=== PATIENT | female | born 1945 | race Caucasian/White ===

== ENCOUNTER 2021-09-15 10:07 | Outpatient (REF) | payer MEDICARE, OTHER, SELFPAY ==
[2021-09-15 12:44] LABS: Anion Gap 19 (12-20); Blood Urea Nitrogen 28 mg/dL (9-16); Calcium 10.2 mg/dL (8.4-10.2); Carbon Dioxide 22 mmol/L (22-29); Chloride 101 mmol/L (96-108); Estimated Glomerular Filt Rate 45; Glucose Random 143 mg/dL (60-115); Potassium 4.2 mmol/L (3.3-5.1); Sodium 138 mmol/L (135-145)
== END 2021-09-15 10:08 | disposition home or self-care (01) ==
LOC: HO.LAB 10:07
PROVIDERS: PCP Nurse Practitioner Primary Care; Visit Provider Surgery
DX: R22.0 Localized swelling, mass and lump, head (principal)
CPT/HCPCS: 36415; 80048; 99202

== ENCOUNTER 2021-09-20 08:04 | Outpatient (REF) | payer MEDICARE, OTHER, SELFPAY ==
--- NOTE | ~2021-09-20 | CT_ITS ---
EXAMINATION: CT HEAD WITH/WITHOUT CONTRAST CLINICAL INFORMATION: Localized swelling. COMPARISON: None TECHNIQUE: Contiguous axial imaging was performed from the skull base to vertex before and after the administration of 100 mL of Omnipaque [address] examination was performed using dose optimization techniques as appropriate, variously including the following: *Automated exposure control *Adjustment of mA and/or kV according to patient size (this includes techniques or standardized protocols for targeted exams where dose is matched to indication/reason for exam; i.e. extremities or head) *Use of iterative reconstruction technique DLP: 1628 mGy-cm FINDINGS: There is no evidence of acute intracranial hemorrhage or territorial infarction. No abnormal mass effect or midline shift is seen. Prasad to white matter differentiation is well preserved. No extra-axial fluid collections are identified. There is no abnormal enhancement. The lateral ventricles are symmetrical but enlarged. There is diffuse periventricular hypodensity in both cerebral hemispheres without mass effect or edema. The mastoid air cells and visualized portions of the paranasal sinuses are well aerated. There are 3 scalp lesions. A 1.5 cm lesion right posterior parietal region measuring 34 Hounsfield units on postcontrast and 33 Hounsfield units on precontrast on coronal image 70/10 and 71/5 respectively. There is a second lesion in the left parasagittal scalp parietal region measuring 1.5 cm with a precontrast density measuring 40 Hounsfield units and a postcontrast density measuring 51 Hounsfield units. There is a third lesion right parasagittal frontal scalp with hypodense areas within. Precontrast lesion measures 119 Hounsfield units and postcontrast it measures [address]/CT head/brain wo/w con IMPRESSION: No acute intracranial process seen. Differential diagnosis for 2 small scalp lesions could represent sebaceous cyst neurofibromas or pilomatricomas. 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 If patient is symptomatic with the larger lesion, a biopsy or follow up with an MRI can be performed.
[2021-09-20] MEDS: iohexoL 350 MG/ML 100 ML INFUS..BTL 85 ML IV (08:47)
== END 2021-09-20 08:05 | disposition home or self-care (01) ==
LOC: HO.CT 08:04
PROVIDERS: PCP Nurse Practitioner Primary Care; Visit Provider Nurse Practitioner Primary Care
DX: R22.0 Localized swelling, mass and lump, head (principal)
CPT/HCPCS: 70470; Q9967

== ENCOUNTER → 2021-09-27 10:37 | Outpatient (BNVA) | payer MEDICARE, OTHER, SELFPAY | PROVIDERS: PCP Nurse Practitioner Primary Care; Visit Provider Surgery | DX: R22.0 Localized swelling, mass and lump, head (principal) | CPT/HCPCS: 99212 ==

== ENCOUNTER 2021-10-19 07:52 | Day surgery (SDC) | payer MEDICARE, OTHER, SELFPAY ==
[2021-10-13 11:19] VITALS: BMI 27.9
--- NOTE | 2021-10-18 10:31 | HO.ANESPROP2 ---
Documented by User: Jeri Kaur NP 10/18/21 10:31 HPI - Anesthesia Eval Consult details Narrative: 76yo F for Excision Mass and Sebaceous Cyst of scalp PMFSH Active Problems Active Problems: All Active Problems (Updated 10/13/21 @ 11:18 by Caro Tillman RN) Scalp mass (Acute) Past Medical History Medical History Diabetes Elevated cholesterol GERD (gastroesophageal reflux disease) HTN (hypertension) Surgical History Surgical History (Updated 10/13/21 @ 11:18 by Caro Tillman RN) Surgical history unknown Social History Social History Patient Tobacco Use Status: Never used Tobacco Advance Directives: No Advance Directives Information Provided: Yes Nutrition Risks: No Nutritional Risk Patient : No Meds Allergies Allergy/AdvReac Type Severity Reaction Status Date / Time No Known Allergies Allergy Verified 10/19/21 10:31 Home Medications Medication Instructions Recorded Confirmed Last Taken Type atorvastatin 40 mg tablet 40 mg PO DAILY 09/15/21 09/15/21 Unknown History doxycycline hyclate 100 mg tablet 100 mg PO BID 09/15/21 09/15/21 Unknown History gemfibrozil 600 mg tablet 600 mg PO BID 09/15/21 09/15/21 Unknown History hydrochlorothiazide 25 mg tablet 25 mg PO DAILY 09/15/21 09/15/21 Unknown History losartan 50 mg tablet 50 mg PO DAILY 09/15/21 09/15/21 Unknown History metformin 1,000 mg tablet 1,000 mg PO BID 09/15/21 09/15/21 Unknown History metoprolol tartrate 50 mg tablet 50 mg PO BID 09/15/21 09/15/21 Unknown History pantoprazole 40 mg tablet,delayed 40 mg PO DAILY 09/15/21 09/15/21 Unknown History release aspirin 81 mg tablet 81 mg PO DAILY 10/18/21 10/18/21 Unknown History Exam Exam Date and Time: October 18, 2021 1031 Height,Weight and Vital Signs: Height 5 ft 6 in Weight 78.471 kg Pertinent Lab Results Pertinent Lab Results: Laboratory Tests 09/15/21 11:42 Sodium 138 Potassium 4.2 Chloride 101 Carbon Dioxide 22 BUN 28 H Creatinine 1.16 Assessment and Plan Assessment Anesthesia Assessment: Chart Reviewed Documented by User: Violeta Boyd MD 10/19/21 10:41 [facility] Past Medical History Medical History Diabetes Elevated cholesterol GERD (gastroesophageal reflux disease) HTN (hypertension) Functional capacity: independent ambulation Patient : No Family History Family history of problems with anesthesia: No Surgical History Surgical History (Updated 10/13/21 @ 11:18 by Caro Tillman RN) Surgical history unknown Social History Social History Patient Tobacco Use Status: Never used Tobacco Advance Directives: No Advance Directives Information Provided: Yes Nutrition Risks: No Nutritional Risk Patient : No Meds Allergies Allergy/AdvReac Type Severity Reaction Status Date / Time No Known Allergies Allergy Verified 10/19/21 10:31 Home Medications Medication Instructions Recorded Confirmed Last Taken Type atorvastatin 40 mg tablet 40 mg PO DAILY 09/15/21 09/15/21 Unknown History doxycycline hyclate 100 mg tablet 100 mg PO BID 09/15/21 09/15/21 Unknown History gemfibrozil 600 mg tablet 600 mg PO BID 09/15/21 09/15/21 Unknown History hydrochlorothiazide 25 mg tablet 25 mg PO DAILY 09/15/21 09/15/21 Unknown History losartan 50 mg tablet 50 mg PO DAILY 09/15/21 09/15/21 Unknown History metformin 1,000 mg tablet 1,000 mg PO BID 09/15/21 09/15/21 Unknown History metoprolol tartrate 50 mg tablet 50 mg PO BID 09/15/21 09/15/21 Unknown History pantoprazole 40 mg tablet,delayed 40 mg PO DAILY 09/15/21 09/15/21 Unknown History release aspirin 81 mg tablet 81 mg PO DAILY 10/18/21 10/18/21 Unknown History Exam Airway Mallampati Class: II TM Dist: >3cm Neck ROM: Full Heart: RRR Lungs: CTA Assessment and Plan Final Anesthetic Review Family History of Problems with Anesthesia: No ASA Class: II Final Preanesthetic Review: No Changes in Pt Med Stat, Meds/Allgs Chart Reviewed, Consent Obtained/Reviewed and Anes Risks/Benef Reviewed Patient Risk: Low Procedure Risk: Low Anesthetic Plan Anesthetic Plan: GA Disposition: Standard PACU
[2021-10-19] VITALS (7 sets, daily range): BP systolic 141–162; BP diastolic 61–85; PULSE 83–95; RESP 16–18; TEMP 36.1–36.7; O2SAT 89–98
[2021-10-19 08:44] LABS: Glucose, Whole Blood 127 mg/dL (60-115)
[2021-10-19] MEDS: Lactated Ringers 1,000 ML 100 ML IVCONT (08:45)
--- NOTE | 2021-10-19 09:48 | MHC.SHP ---
Pre-Procedural Eval Section A Date of Service: 10/19/21 The patient is an INPATIENT: No The History & Physical has been completed within 30 days and I have reviewed it.: Yes Section B Chief Complaint: Localized swelling, mass and lump, head Allergies: Allergies Allergy/AdvReac Type Severity Reaction Status Date / Time No Known Allergies Allergy Verified 09/27/21 10:50 Plan I have reviewed the history and physical and performed a pertinent physical examination on my patient. No changes have occurred unless specified.
--- NOTE | 2021-10-19 09:49 | P.OP_ITS ---
Operative Note Operative Note Date of Service: 10/19/21 Narrative: Preop diagnosis: [Multiple scalp cysts] Postop diagnosis: [Same] Procedure: [Excision of 4.5 x 5.0 cm cystic scalp mass & 5 cmm local advancement flap closure; excision scalp sebaceous cysts x 2 with primary closure] Surgeon: Adam Mcguire MD Assist: [None] Anesthesia: [GET and local, Lidocaine 2% with epi & Ropivicaine 0.5% 50:50 mix] Estimated blood loss: [5cc] Specimen: [1) scalp mass, 2) sebaceous cysts x 2 ( 1.8x2.1cm & 2.2x2.4cm] 3) intra-op culture Gram stain & culture Intraoperative findings: [4.5 x 5.0cm cystic mass with ? 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 There have been no prior attempts at resection, however she has had multiple superficial infections secondary to sebaceous cysts on the mass. Preoperative CT confirm no communication with the skull. She also has 2 other smaller sebaceous cysts that are causing grooming issues and she wanted to have these removed. The inherent risks of bleeding, infection, recurrence or need for another procedure in the event of a complication was discussed with the patient and apparently understood. She seemed understand and wanted to proceed. The option of a 2nd opinion was offered and declined.] Procedure: [The patient was identified in preoperative holding by myself and again in the operating suite. Sequential compression stockings were in place, an appropriate time-out performed and she received Ancef IV. Her scalp was carefully prepped with Betadine and draped in the usual manner for surgery. Both the scalp was being prepped with Betadine, purulence material was present at the largest 4.5 by 2.5 cm mass. This was excluded to minimize infection risks. Under loupe magnification, dissection was addressed to the sebaceous cysts in the right occipitoparietal area and occipital area. Linear incisions were made sharply and carried into the subcutaneous tissues. Hemostasis was obtained with electrocautery. The cysts and there respective capsules were circumferentially dissected and sent for permanent section. Hemostasis was obtained with electrocautery. Next, intraoperative cultures and Gram stain were obtained and sent. Next, an elliptical incision measuring 6 x 5cm encompassing the large scalp mass was dietrich ied into the loose arealor tissue. In order to affect primary closure, local advancement flaps had to be raised the length of the incision and dissection was carried in the loose areolar plane until the scalp skin could be closed primarily. Hemostasis was obtained with cautery. Interrupted 3-0 Polysorb sutures were used to approximate the deep dermis tissues and a 3-0 polypropylene suture used to close the skin. The area was then washed and dried, bacitracin and a scalp stockingette applied. The patient tolerated the procedure well was sent extubated to recovery in stable condition. All sponge initial counts were correct. At the patient's request, I called her at [phone] and apprised him of the operation and restrictions. His questions seemed to be satisfactorily answered.]
== END 2021-10-19 12:56 | disposition home or self-care (01) ==
LOC: HO.SSS 07:52
PROVIDERS: PCP Nurse Practitioner Primary Care; Visit Provider Surgery
PROC: (CPT 14021; principal; 2021-10-19 09:40)
DX: L72.11 Pilar cyst (principal); L72.3 Sebaceous cyst; E78.00 Pure hypercholesterolemia, unspecified; I10 Essential (primary) hypertension; E11.9 Type 2 diabetes mellitus without complications; K21.9 Gastro-esophageal reflux disease without esophagitis; Z79.82 Long term (current) use of aspirin; Z79.84 Long term (current) use of oral hypoglycemic drugs; Z79.899 Other long term (current) drug therapy
CPT/HCPCS: 14021; 11423; 11422; 82947; 87071; 87077; 87186; 87205; 88304; J0690; J2250; J2795; J3010

== ENCOUNTER → 2021-10-27 08:31 | Outpatient (BNVA) | payer MEDICARE, MEDICAID, SELFPAY | PROVIDERS: PCP Nurse Practitioner Primary Care; Visit Provider Surgery | DX: Z09 Encounter for follow-up examination after completed treatment for conditions other than malignant neoplasm (principal) | CPT/HCPCS: 99212 ==

== ENCOUNTER 2022-12-19 11:47 | Outpatient (REF) | payer OTHER, SELFPAY ==
--- NOTE | ~2022-12-19 | MM_ITS ---
EXAMINATION: MM SCREENING DIGITAL BREAST TOMOSYNTHESIS, BILATERAL CLINICAL INFORMATION: Screening. Asymptomatic. COMPARISON: Mammography: This study is compared with prior exams dating back to 2015. TECHNIQUE: Digital breast tomosynthesis is performed in both the craniocaudal and mediolateral oblique views along with computer-aided detection (CAD). Synthesized 2D images are generated from the tomosynthesis. FINDINGS: The breasts are almost entirely fatty (ACR BI-RADS breast composition Category a). There are no significant masses, abnormal calcifications, or other abnormalities. MM/MM tomosynthesis screening BI IMPRESSION: No mammographic evidence of malignancy. ASSESSMENT: BI-RADS BI-RADS 1 - Negative RECOMMENDATION: Routine annual mammography screening. 1 year F/U This examination should not preclude the clinical evaluation of a suspicious palpable abnormality. This patient's information was entered into a reminder system with a target due date for their next mammogram.
== END 2022-12-19 11:48 | disposition home or self-care (01) ==
LOC: HO.MAMMO 11:47
PROVIDERS: Visit Provider Nurse Practitioner Primary Care
DX: Z12.31 Encounter for screening mammogram for malignant neoplasm of breast (principal)
CPT/HCPCS: 77063; 77067

== ENCOUNTER → 2022-12-19 12:30 | Outpatient (BNV) | payer MEDICARE, SELFPAY | PROVIDERS: Visit Provider Radiology Diagnostic Radiology | DX: Z12.31 Encounter for screening mammogram for malignant neoplasm of breast (principal) | CPT/HCPCS: 77063; 77067 ==

== ENCOUNTER 2023-02-08 09:30 | Outpatient (REF) | payer OTHER, SELFPAY ==
--- NOTE | ~2023-02-08 | US_ITS ---
EXAMINATION: US ABDOMEN COMPLETE CLINICAL INFORMATION: Left upper quadrant swelling and pain. COMPARISON: None available. TECHNIQUE: Real-time imaging of the abdominal viscera. FINDINGS: The region of the pancreas is not adequately defined. There is no free fluid in the area. The proximal aorta and vena cava are within normal limits. Liver is overall increased in echogenicity. This could be consistent with fatty change. Hepatitis cannot be excluded. The pick up driver comments on dilated ducts. The gallbladder demonstrates multiple gallstones. Difficult to assess the gallbladder wall. Lead Esthetician measures the wall at 5 mm. Edema/thickening cannot be excluded. Common duct is 7 mm. The right kidney is 10.9 cm. Incompletely visualized. No hydronephrosis. Superior pole is not adequately seen. Left kidney is 10.7 cm. Again incompletely not adequately visualized. There is, however, no hydronephrosis. Spleen is 10 cm within normal limits. US/US abdomen complete IMPRESSION: This exam is limited. There is cholelithiasis here and possible gallbladder wall thickening. This may be chronic but edema cannot be excluded. Common duct is 7 mm mildly prominent and the pick up driver raises the question of some intrahepatic ductal dilatation. The liver is overall increased echogenicity which may be consistent with fatty change. Other findings are as described above Correlation recommended clinically. If further evaluation is warranted consider HIDA scan.
== END 2023-02-08 09:31 | disposition home or self-care (01) ==
LOC: HO.HMGCX 09:30
PROVIDERS: PCP Nurse Practitioner Primary Care; Visit Provider Nurse Practitioner Primary Care
DX: R10.12 Left upper quadrant pain (principal); R19.02 Left upper quadrant abdominal swelling, mass and lump
CPT/HCPCS: 76700

== ENCOUNTER 2024-01-17 11:47 | Outpatient (REF) | payer OTHER, SELFPAY ==
--- NOTE | ~2024-01-17 | MM_ITS ---
EXAMINATION: MM SCREENING DIGITAL BREAST TOMOSYNTHESIS, BILATERAL CLINICAL INFORMATION: Screening. Asymptomatic. COMPARISON: Mammography: Comparison is made with available priors TECHNIQUE: Digital breast mammography with tomosynthesis is performed in both the craniocaudal and mediolateral oblique views along with computer-aided detection (CAD). FINDINGS: There are scattered areas of fibroglandular density (ACR BI-RADS breast composition Category b). There are no significant masses, abnormal calcifications, or other abnormalities. MM/MM tomosynthesis screening BI IMPRESSION: No mammographic evidence of malignancy. ASSESSMENT: BI-RADS BI-RADS 1 - Negative RECOMMENDATION: Routine annual mammography screening. 1 year F/U This examination should not preclude the clinical evaluation of a suspicious palpable abnormality. This patient's information was entered into a reminder system with a target due date for their next mammogram. Electronically signed by: Gina Walter DO 01/23/2024 01:25 PM [facility]
== END 2024-01-17 11:48 | disposition home or self-care (01) ==
LOC: HO.MAMMO 11:47
PROVIDERS: PCP Nurse Practitioner Primary Care; Visit Provider Nurse Practitioner Primary Care
DX: Z12.31 Encounter for screening mammogram for malignant neoplasm of breast (principal)
CPT/HCPCS: 77063; 77067

== ENCOUNTER → 2024-01-17 12:15 | Outpatient (BNV) | payer OTHER, SELFPAY | PROVIDERS: PCP Nurse Practitioner Primary Care; Visit Provider Internal Medicine | DX: Z12.31 Encounter for screening mammogram for malignant neoplasm of breast (principal) | CPT/HCPCS: 77063; 77067 ==

== ENCOUNTER 2024-01-21 10:08 | Outpatient (REF) | payer OTHER, SELFPAY ==
[2024-01-21 11:36] LABS: MANUAL DIFF FLAG NO
[2024-01-21 11:38] LABS: Basophils Percent Auto 0.3 % (0-2); Eosinophils Absolute Auto 0.2 X10*3/uL (0.0-0.4); Eosinophils Percent Auto 2.2 % (0-4); Hematocrit 37.7 % (37.0-47.0); Hemoglobin 12.5 g/dl (12.0-16.0); Imm Gran Abs Auto 0.03 X10*3/uL (0.00-0.03); Imm Gran Pct Auto 0.4 % (0.0-0.4); Lymphocytes Absolute Auto 1.7 X10*3/uL (1.2-4.9); Lymphocytes Percent Auto 23.2 % (20-40); Mean Corpuscular HGB Conc 33.2 g/dl (31.0-35.0); Mean Corpuscular Hemoglobin 32.1 pg (27.0-33.0); Mean Corpuscular Volume 96.7 fL (80.0-98.0); Mean Platelet Volume 9.8 fL (9.4-12.3); Monocytes Absolute Auto 0.8 X10*3/uL (0.1-1.2); Monocytes Percent Auto 10.4 % (2-11); Neutrophils Absolute Auto 4.7 x10*3/uL (2.0-8.3); Neutrophils Percent Auto 63.5 % (45-73); Platelet Count 318 X10*3/uL (160-400); Red Cell Distribution Width 13.2 % (11.0-16.0); White Blood Count 7.3 X10*3/uL (4.8-10.8)
[2024-01-21 12:15] LABS: Alanine Aminotransferase 26 U/L (0-31); Alkaline Phosphatase 49 U/L (39-117); Anion Gap 14 (12-20); Aspartate Amino Transferase 32 U/L (5-31); Bilirubin Total 0.4 mg/dL (0.0-1.0); Blood Urea Nitrogen 18 mg/dL (9-16); Calcium 9.1 mg/dL (8.4-10.2); Carbon Dioxide 28 mmol/L (22-29); Chloride 101 mmol/L (96-108); Cholesterol 140 mg/dL (<200); Estimated Glomerular Filt Rate 47; Glucose Random 128 mg/dL (60-115); HDL Cholesterol 40 mg/dL (>40); LDL Cholesterol Calculated 60 mg/dL (<100); Potassium 3.8 mmol/L (3.3-5.1); Sodium 139 mmol/L (135-145); Total Protein 7.7 g/dL (6.5-8.0); Triglycerides 202 mg/dL (<150)
[2024-01-21 12:41] LABS: Vitamin B12 276 pg/mL (200-900)
== END 2024-01-21 10:09 | disposition home or self-care (01) ==
LOC: HO.HHCL 10:08
PROVIDERS: Visit Provider Nurse Practitioner Primary Care
DX: R10.12 Left upper quadrant pain (principal); E11.69 Type 2 diabetes mellitus with other specified complication; E78.5 Hyperlipidemia, unspecified
CPT/HCPCS: 36415; 80053; 80061; 82607; 85025

== ENCOUNTER 2025-01-22 11:09 | Outpatient (REF) | payer MEDICARE, SELFPAY ==
--- NOTE | ~2025-01-22 | MM_ITS ---
EXAMINATION: MM SCREENING DIGITAL BREAST TOMOSYNTHESIS, BILATERAL CLINICAL INFORMATION: Screening. Asymptomatic. COMPARISON: Mammography: Comparison is made with available priors TECHNIQUE: Digital breast mammography with tomosynthesis is performed in both the craniocaudal and mediolateral oblique views along with computer-aided detection (CAD). FINDINGS: There are scattered areas of fibroglandular density. Right: Asymmetry retroareolar region slightly inferior breast anterior depth on MLO view. No suspicious calcifications or other abnormal findings. Left: There are no significant masses, abnormal calcifications, or other abnormalities. MM/MM tomosynthesis screening BI IMPRESSION: Additional imaging is recommended ASSESSMENT: BI-RADS Category 0: Incomplete - Need additional Imaging Evaluation RECOMMENDATION: 1. Additional views of the right breast. 2. Targeted ultrasound if warranted after review of the additional views. 3. Radiology department staff will contact the patient for additional imaging. Additional Imaging required This examination should not preclude the clinical evaluation of a suspicious palpable abnormality. This patient's information was entered into a reminder system with a target due date for their next mammogram. Electronically signed by: Gina Walter DO 01/26/2025 03:27 PM [facility]
== END 2025-01-22 11:10 | disposition home or self-care (01) ==
LOC: HO.MAMMO 11:09
PROVIDERS: PCP Nurse Practitioner Primary Care; Visit Provider Nurse Practitioner Primary Care
DX: Z12.31 Encounter for screening mammogram for malignant neoplasm of breast (principal)
CPT/HCPCS: 77063; 77067

== ENCOUNTER → 2025-01-22 11:30 | Outpatient (BNV) | payer MEDICARE, SELFPAY | PROVIDERS: PCP Nurse Practitioner Primary Care; Visit Provider Internal Medicine | DX: Z12.31 Encounter for screening mammogram for malignant neoplasm of breast (principal) | CPT/HCPCS: 77063; 77067 ==

== ENCOUNTER 2025-01-28 09:44 | Outpatient (REF) | payer MEDICARE, SELFPAY ==
--- OUTSIDE RECORDS SUMMARY | 2025-01-28 11:33 | XMS_ITS | Clinical Summary ---
Author Organization [employer] Address [address] [facility] 7t [place] [address] Care Team Providers Care Assembly Room Supervisor Name Role Phone Shaista Slade Primary Care Provider [phone] Allergies Active Allergy Reactions Criticality Noted Date Comments Nenafap-Jbbhcl-Nyima Pertussis Palpitations,Dizziness,Fev er Low 04/06/2014 Medications Melatonin 3 MG capsuleIndication s:Difficulty sleeping 1 capsule at night as needed for insomnia 90 capsule 07/21/19 23 Active guaiFENesin (Mucinex) 600 MG 12 hr tabletIndications :Acute cough 1 tab twice daily as needed for mucus. Do not crush, chew, or split. 60 tablet 01/30/20 24 Active metFORMIN (Glucophage) 1000 MG tablet TAKE 1 TABLET BY MOUTH TWICE DAILY IN THE MORNING AND IN THE EVENING WITH MEALS 180 tablet 3 02/07/20 24 Active acetaminophen (Tylenol) 500 MG tabletIndications :Chronic periodontitis Take 1 tablet (500 mg) by mouth every 6 (six) hours if needed for mild pain for up to 20 doses. 20 tablet 04/01/19 25 Active hydroCHLOROthiazi de (HYDRODiuril) 25 MG tabletIndications :Benign essential HTN TAKE 1 TABLET BY MOUTH EVERY DAY 90 tablet 3 04/28/19 25 Active metoprolol succinate XL (Toprol XL) 50 MG 24 hr tabletIndications :Hypertension associated with diabetes (HCC) Take 1 tablet (50 mg) by mouth Once per day. Do not crush or chew. 90 tablet 3 05/29/19 25 026 Active omega-3 acid ethyl esters (Lovaza) 1 g capsuleIndication s:Hypertriglyceri demia Take 1 capsule (1 g) by mouth 2 times daily. 180 capsule 3 05/30/19 25 026 Active atorvastatin (Lipitor) 40 MG tablet TAKE 1 TABLET BY MOUTH EVERY DAY AT BEDTIME 90 tablet 3 08/19/19 25 Active losartan (Cozaar) 50 MG tablet TAKE 1 TABLET BY MOUTH EVERY DAY 90 tablet 2 09/25/19 25 Active pantoprazole (ProtoNix) 40 MG EC tabletIndications :Gastroesophageal reflux disease, unspecified whether esophagitis present TAKE 1 TABLET BY MOUTH EVERY DAY 90 tablet 3 01/22/20 25 Active pantoprazole (ProtoNix) 40 MG EC tabletIndications :Gastroesophageal reflux disease, unspecified whether esophagitis present TAKE 1 TABLET BY MOUTH EVERY DAY 90 tablet 3 01/27/20 24 025 Discontinued Active Problems Problem Noted Date Diagnosed Date Chronic periodontitis 04/01/2024 Adenocarcinoma, colon (CMS/HCC) 06/12/2023 Overview (06/12/2023): Images from the original note were not included. Pt had positive cologuard followed by colonoscopy 04/30/23 at [facility] that removed polyps, 1 of which was invasive adenocarcinoma, others tubular adenoma and sessile serrated lesions w/o dysplasia. She saw [facility] onc 05/07/23 who felt resection was not warranted in her case as the polyp was removed in entirety. They agreed w/ GI plan of repeat c-scope in 6 mos. From Heme Onc note 05/07/23, [facility] Hypertension 01/23/2023 01/23/2023 Positive colorectal cancer screening using Colog uard test 11/29/2022 Dental calculus 04/17/2022 Gingival recession, localized 04/17/2022 Benign hypertension 01/07/2012 Overview (10/02/2023): At/near goal today, </= 140/80. Continue HCTZ 25 mg daily Losartan 50 mg daily Metoprolol tartrate 50 mg twice daily continue to encourage low salt diet, regular exercise, home BP monitoring, compliance with medications. Call clinic if BP is frequently >150/90 Go to ED/call 911 if > 170/100 and having sx such as GIBSON, visual changes, chest pain, SOB Last renal function: Lab Results Component Value Date NA 138 09/15/2021 K 4.2 09/15/2021 CO2 22 09/15/2021 CL 101 09/15/2021 BUN 26 (H) 12/15/2021 CREATININE 1.16 09/15/2021 EGFR 45 09/15/2021 Lab Results Component Value Date MICROALBCREA 11 08/05/2020 No results found for: MICROALBCREU Hyperlipidemia 01/07/2012 Calculus in biliary tract 01/07/2012 Type 2 diabetes mellitus with hyperlipidemia 01/23/2023 Encounters Date Type Department Care Team Description 01/26/2025 Results Follow-Up [facility] MEDICINE [address] [place] [address] Shaista Slade ANP BI Mammogram Screening Tomosynthesis Bilateral 01/22/2025 Orders Only [facility] MEDICINE [address] [place] [address] Shaista Slade ANP 01/21/2025 1:30 PM EST Office Visit [facility] OPTOMETRY [address] [place] [address] Ryland, Mana, OD Diabetes type 2, no ocular involvement (HCC) (Primary Dx); Posterior vitreous detachment of both eyes; Combined forms of age-related cataract of both eyes; Meibomian gland dysfunction (MGD) of upper and lower lids of both eyes; Presbyopia 01/21/2025 Travel 01/21/2025 Refill [facility] CHC MED & PEDS [address] [place], [place] [id number] Shaista Slade ANP Gastroesophageal reflux disease, unspecified whether esophagitis present 12/29/2024 Telephone [facility] ADULT DENTAL [address] [place] [address] Yoana Turner relocating dental care 12/28/2024 Telephone [facility] ADULT DENTAL [address] [place] [address] Yoana Turner 12/10/2024 Telephone [facility] MEDICINE [address] [place] [address] Shaista Slade ANP February Recall from Last 3 Months Immunizations Immunization Administration Dates Next Due DTaP 05/17/2008 Influenza High-dose Quadriva lent Preservative Free 10/21/2020 Influenza Quadrivalent Adjuvanted 10/19/2022, Influenza Whole 12/26/2009, 9,12/02/2007,12/13 Influenza injectable quadriv alent IIV4 with preservative 11/01/2015,11/18/2014 Influenza injectable quadriv alent preservative free 10/26/2017 Influenza, IIV3, injectable 11/26/2013 Influenza, Split (incl. katherine fied surface antigen) 11/03/2012,11/16/2011 Influenza, seasonal, injecta ble, preservative free 10/15/2019 Influenza, trivalent, adjuvanted 10/25/2023,10/12 Moderna Covid-19 Vaccine 12+ 06/27/2021 Pfizer Covid-19 Vaccine 12+ 11/22/2023, Pneumococcal Conjugate PCV 13 01/31/2016 Pneumococcal Polysaccharide PPSV23 11/15/2008 RSV Bivalent 03/06/2024 Zoster, Recombinant 09/28/2022,07/27/2022 Social History Tobacco Use Types Packs/Day Years Used Date Smoking Tobacco: Never Smokeless Tobacco: Never Tobacco Cessation:Counseling Given: Not Answered Alcohol Use Standard Drinks/Week Comments Defer 0 (1 standard drink = 0.6 oz pur e alcohol) Depression Answer Date Recorded Patient Health Questionnaire-9 Score 0 09/29/2024 Patient Health Questionnaire-9 Score 0 09/29/2024 Last PHQ-9: Questionnaire Data Not on file 0 09/29/2024 Housing Stability Answer Date Recorded What is your housing situation today? I have sunil villeda 09/29/[address] you li ve. Do you have problems with any of the following? None of the above 09/29/2024 Food Insecurity Answer Date Recorded Within the past 12 months, y ou worried that your food would run out before you got money to buy more: Never True 09/29/2024 Within the past 12 months,th e food you bought just didn't last and you didn't have enough money to get more: Never True Transportation Answer Date Recorded In the past 12 months, has l ack of transportation kept you from medical appts, meetings, work or from getting things needed for daily living? No 09/29/2024 Utilities Answer Date Recorded In the past 12 months, has t he electric, gas, oil or water company threatened to shut off services in your home? No 09/29/2024 Depression Answer Date Recorded Patient Health Questionnaire-2 Score 0 09/29/2024 Internet Access Answer Date Recorded Internet Access Q1 No 10/14/2023 Internet Access Q2 I do not want or need it 03/2023 Comments Unknown Sex and Gender Information Value Date Recorded Sex Assigned at Female 12/11/2021 10:21 AM EDT Legal Sex Female 10:21 AM EDT Gender Identity Female 01/30/2024 8:43 AM EST Sexual Orientation Straight 12/11/2021 10 :21 AM EDT Last Filed Vital Signs Vital Sign Reading Time Taken Comments Blood Pressure 150/80 09/29/2024 9:13 AM EDT Pulse 84 09/29/2024 9:13 AM EDT Temperature 36.3 C (97.3 F) 09/29/2024 9:13 AM EDT Respiratory Rate 20 09/29/2024 9:13 AM EDT Oxygen Saturation 98% 09/29/2024 9:13 AM EDT Inhaled Oxygen Concentration - - Weight 78.3 kg (172 lb 9.6 oz) 09/29/2024 9:13 A M EDT Height 162.6 cm (5' 4 ) 09/29/2024 9:13 AM EDT Body Mass Index 29.63 09/29/2024 9:13 AM EDT Plan of Treatment Upcoming Encounters Date Type Department Care Team (Late st Contact Info) Description 02/25/2025 11:00 AM EST Office Visit [facility] MEDICINE [address] [place] [address] Shaista Slade, ANP [address] [place] [address] Health Maintenance Due Date Last Done Comments Dental X-Ray: Full Mouth 1945 Diabetes: Urine Protein Screening 08/05/2021 08/05/2020 Dental Prophylaxis 10/19/2022 04/17/2022 Dental Oral Exam 11/06/2024 05/05/2024, 04/17/2022 Lipid Panel 01/20/2025 01/21/2024, 11/0 05/2021, 08/05/2020 Diagnostic Breast Imaging 01/27/2025 12/19/2022 Alcohol/Substance Use Screening 01/29/2025 01/30/2024 Mammogram 02/22/2025 01/22/2025, 07/2023, 12/19/2022, Additional history exists Diabetes: Hemoglobin A1C 04/01/2025 025, 05/28/2024, 01/30/2024, Additional history exists Dental X-Ray: Bitewings 05/06/2025 05/05/2024, 04/17 COVID-19 Vaccine ( season) 2025 11/20/2024, 11/22/2023, 11/16/2022, Additional history exists Depression Screening 09/29/2025 09/29/2024, 09/30/19 Diabetes: Foot Exam 09/29/2025 09/29/2024, 09/29/2024, 09/29/2024, Additional history exists SDOH Screening 09/29/2025 09/29/2024 Tobacco Screening 11/11/2025 11/11/2024 Eye Exam 01/21/2027 01/21/2025, 01/11, 01/21/2025, Additional history exists DTaP/Tdap/Td Vaccines Discontinued 05/17/2008 Pneumococcal Vaccine: 50+ Years Completed 01/31/2016, 11/15/2008 Zoster Vaccines Completed 09/28/2022, 07/27/2022 RSV Patients and Patients Aged 60 years or older Completed 03/06/2024 Influenza Vaccine Completed 10/20/2024, , 10/19/2022, Additional history exists HIB Vaccines Aged Out No longer eligi ble based on patient's age to complete this topic HPV Vaccines Aged Out No longer eligi ble based on patient's age to complete this topic Hepatitis A Vaccines Aged Out No long er eligible based on patient's age to complete this topic Hepatitis B Vaccines Aged Out No long er eligible based on patient's age to complete this topic IPV Vaccines Aged Out No longer eligi ble based on patient's age to complete this topic Meningococcal B Vaccine Aged Out No l onger eligible based on patient's age to complete this topic Meningococcal Vaccine Aged Out No kojo heladio eligible based on patient's age to complete this topic RSV under 20 months Aged Out No longe r eligible based on patient's age to complete this topic Rotavirus Vaccines Aged Out No longer eligible based on patient's age to complete this topic Goals Goal Patient Goal Type Associated Problems Recent Progress Patient-Stated? Author Help patients manage their type 2 diabetes Care Plan Help patients manage their type 2 diabetes No Babin, María Weekly blood pressure task Care Plan Weekly blood pressure task No Babin, María Help patients manage their type 2 diabetes Care Plan Help patients manage their type 2 diabetes No Babin, María Patient has chronic kidney disease Care Plan Patient has chronic kidney disease No Babin, María Weekly blood pressure task Care Plan Weekly blood pressure task No Babin, María Patient has chronic kidney disease Care Plan Patient has chronic kidney disease No Babin, María Weekly blood pressure task Care Plan Weekly blood pressure task No Smith, Helen Weekly blood pressure task Care Plan Weekly blood pressure task No Smith, Helen Patient has chronic kidney disease Care Plan Patient has chronic kidney disease No Smith, Helen Patient has chronic kidney disease Care Plan Patient has chronic kidney disease No Smith, Helen Weekly blood pressure task Care Plan Weekly blood pressure task No Ryland, Mana, OD Weekly blood pressure task Care Plan Weekly blood pressure task No Ryland, Mana, OD Patient has chronic kidney disease Care Plan Patient has chronic kidney disease No Ryland, Mana, OD Patient has chronic kidney disease Care Plan Patient has chronic kidney disease No Ryland, Mana, OD Weekly blood pressure task Care Plan Weekly blood pressure task No Shaista Slade ANP Weekly blood pressure task Care Plan Weekly blood pressure task No Shaista Slade ANP Patient has chronic kidney disease Care Plan Patient has chronic kidney disease No Shaista Slade ANP Patient has chronic kidney disease Care Plan Patient has chronic kidney disease No Shaista Slade ANP Weekly blood pressure task Care Plan Weekly blood pressure task No Briana Alonso Weekly blood pressure task Care Plan Weekly blood pressure task No Briana Alonso Patient has chronic kidney disease Care Plan Patient has chronic kidney disease No Briana Alonso Patient has chronic kidney disease Care Plan Patient has chronic kidney disease No Briana Alonso Procedures Procedure Name Priority Date/Time Associated Diagnosis Comments BI MAMMOGRAM SCREENING TOMOSYNTHESIS BILATERAL Routine 01/22/2025 11:20 AM EST POCT GLYCATED HEMOGLOBIN, TOTAL Routine 09/29/2024 9:18 AM EDT Type 2 diabetes mellitus with hyperlipidemia (CMS/HCC) (CMS/HCC) BITEWINGS - 4 RADIOGRAPHIC IMAGES Routine 05/05/2024 1:30 PM EDT PERIODIC ORAL EVALUATION - ESTABLISHED PATIENT Routine 05/05/2024 1:30 PM EDT LIPID PANEL, STANDARD Routine 01/21/2024 10:12 AM EST Type 2 diabetes mellitus with hyperlipidemia (CMS/HCC) (CMS/HCC) HM MAMMOGRAPHY Routine 12/19/2022 Full PROPHYLAXIS - ADULT Routine 04/17/2022 10:00 AM EST Dental calculus ALBUMIN, RANDOM URINE W/CREATININE Routine 08/05/2020 9:13 AM EDT from Last 3 Months or Most Recently Relevant to Health Maintenance Results * BI Mammogram Screening Tomosynthesis Bilateral (01/22/2025 11:20 AM EST) Anatomical Region Laterality Modality Breast Bilateral Mammography 01/22/2025 11:2 0 AM EST Narrative 01/26/2025 3:30 PM EST [facility] [address] [place] [address] Mammography Report Signed Patient: Priya Garcia MR#: [id number] 5 : 1945 Acct:[id number] Age/Sex: 79 / F ADM Date: 01/22/25 Loc: HO.MAMMO Attending Dr: Shaista Slade NP Ordering Physician: SHAISTA SLADE NP Results: 0Incomplete - Need Additional Imaging Evaluation Date of Service: 01/22/25 Follow Up: Additional Imagi ng Procedure(s): MM tomosynthesis screening BI Accession Number(s): [id number] cc: SHAISTA SLADE NP Reason For Exam: Z12.31 EXAMINATION: MM SCREENING DIGITAL BREAST TOMOSYNTHESIS, BILATERAL CLINICAL INFORMATION: Screening. Asymptomatic. COMPARISON: Mammography: Comparison is made with available priors TECHNIQUE: Digital breast mammography with tomosynthesis is performed in both the craniocaudal and mediolateral oblique views along with computer-aided detection (CAD). FINDINGS: There are scattered areas of fibroglandular density. Right: Asymmetry retroareolar region slightly inferior breast anterior depth on MLO view. No suspicious calcifications or other abnormal findings. Left: There are no significant masses, abnormal calcifications, or other abnormalities. MM/MM tomosynthesis screening BI IMPRESSION: Additional imaging is recommended ASSESSMENT: BI-RADS Category 0: Incomplete - Need additional Imaging Evaluation RECOMMENDATION: 1. Additional views of the right breast. 2. Targeted ultrasound if warranted after review of the additional views. 3. Radiology department staff will contact the patient for additional imaging. Additional Imaging required This examination should not preclude the clinical evaluation of a suspicious palpable abnormality. This patient's information was entered into a reminder system with a target due date for their next mammogram. Electronically signed by: Gina Walter DO 01/26/2025 03:27 PM [facility] Dictated By: Gina Walter DO Signed By: <Electronically signed by Gina Walter DO in OV> 01/26/25 1527 DD/ 1120 TD/TT: 01/22/25 1128 Health And Nutrition Specialist: Procedure Note Donotuseinterpreter, Image - 01/26/2025 [facility] [address] [place] [address] Mammography Report Signed Patient: Priya Garcia#: [id number] 5 : 4Acct:[id number] Age/Sex: 79 / FADM Date: 01/22/25 Loc: HO.MAMMO Attending Dr: Shaista Slade NP Ordering Physician: SHAISTA SLADE NPResults: 0Incomplete - Need Additional Imaging Evaluation Date of Service: 01/22/25Follow Up: Additional Imagi ng Procedure(s): MM tomosynthesis screening BI Accession Number(s): [id number] cc: SHAISTA SLADE NP Reason For Exam: Z12.31 EXAMINATION: MM SCREENING DIGITAL BREAST TOMOSYNTHESIS, BILATERAL CLINICAL INFORMATION: Screening. Asymptomatic. COMPARISON: Mammography: Comparison is made with available priors TECHNIQUE: Digital breast mammography with tomosynthesis is performed in both the craniocaudal and mediolateral oblique views along with computer-aided detection (CAD). FINDINGS: There are scattered areas of fibroglandular density. Right: Asymmetry retroareolar region slightly inferior breast anterior depth on MLO view. No suspicious calcifications or other abnormal findings. Left: There are no significant masses, abnormal calcifications, or other abnormalities. MM/MM tomosynthesis screening BI IMPRESSION: Additional imaging is recommended ASSESSMENT: BI-RADS Category 0: Incomplete - Need additional Imaging Evaluation RECOMMENDATION: 1. Additional views of the right breast. 2. Targeted ultrasound if warranted after review of the additional views. 3. Radiology department staff will contact the patient for additional imaging. Additional Imaging required This examination should not preclude the clinical evaluation of a suspicious palpable abnormality. This patient's information was entered into a reminder system with a target due date for their next mammogram. Electronically signed by: Gina Walter DO 01/26/2025 03:27 PM EST Dictated By: Gina Walter DO Signed By: <Electronically signed by Gina Walter DO in OV> 01/26/25 1527 DD/ 1120 TD/TT: 01/22/25 1128 Health And Nutrition Specialist: us Shaista WEI IMG BI PROCEDURES Edited Result - Final * (ABNORMAL) POCT HGB A1C (09/29/2024 9:18 AM EDT) Hemoglobin A1C 6.4(A) 4.0 - 5.7 % QC Media Lot # [id number] Lot# Expiration Date [id number] Blood 09/29/2024 9:18 AM EDT us Shaista WEI POINT OF CARE TEST ENTER/EDIT OR DERABLES Final Result * (ABNORMAL) Lipid Panel, Standard (01/21/2024 10:12 AM EST) Triglycerides 202(H) <150 mg/dL [facility] Comment:Desirable Triglyceri de: less than 150 mg/dLBorderline High Triglyceride 150-199 mg/dLHigh Triglyceride: 200-499 mg/dLVery High Triglyceride: greater than or equal to 5OO mg/dL Cholesterol 140 <200 mg/dL [facility] Comment:Desirable Cholestero l: less than 200 mg/dLBorderline High Cholesterol: 200-239 mg/dLHigh Cholesterol: greater than 239 mg/dL LDL Cholesterol Calculated 60 <100 mg/dL [facility] Comment:Desirable LDL: less than 100 mg/dLNear Optimal/Above Optimal LDL: 110- 129 mg/dLBorderline High LDL: 130-159 mg/dLHigh LDL: 160-189 mg/dLVery High LDL: greater than or equal to 190 mg/dL HDL Cholesterol 40(L) >40 mg/dL [facility] Comment:Desirable HDL: great er than 40 mg/dL Note: This HDL assay may give artificially low results in patients with liver disease. Blood Venous blood specimen / Unknown 01/21/2024 10:12 AM EST 01/21/2024 11:36 AM EST [facility] LAB BLOOD ORDERABLES Final Resul t [facility] [address] [place] [address] [phone] * Mammography (12/19/2022) Mammogram BI-RADS-1 NEG Anatomical Region Laterality Modality Other Historical Provider HEALTH MAINTENANCE Final Result * ALBUMIN, RANDOM URINE W/CREATININE (08/05/2020 9:13 AM EDT) Pathologist [facility] Microalbumin Urine 1.1 See Note: mg/dL [facility] Comment: Reference Range: Reference Range Not established Microalb/Creat Ratio 11 <30 mcg/mg creat [facility] Comment: The ADA defines abnormalities in albumin excretion as follows: Category Result (mcg/mg creatinine) Normal <30 Microalbuminuria 30-299 Clinical albuminuria > OR = 300 The ADA recommends that at least two of three specimens collected within a 3-6 month period be abnormal before considering a patient to be within a diagnostic category. Creatinine, Urine 100 20 - 275 mg/dL [facility] 08/05/2020 9:13 AM EDT us Shaista WEI LAB URINE ORDERABLES Final Resul t [facility] [address] from Last 3 Months or Most Recently Relevant to Health Maintenance Additional Health Concerns Active Problems Noted Date Diagnosed Date Help patients manage their type 2 diabetes 12/28 Weekly blood pressure task 12/28/2024 Help patients manage their type 2 diabetes 12/28 Patient has chronic kidney disease 12/28/2024 Weekly blood pressure task 12/28/2024 Patient has chronic kidney disease 12/28/2024 Weekly blood pressure task 12/29/2024 Weekly blood pressure task 12/29/2024 Patient has chronic kidney disease 12/29/2024 Patient has chronic kidney disease 12/29/2024 Weekly blood pressure task 01/21/2025 Weekly blood pressure task 01/21/2025 Patient has chronic kidney disease 01/21/2025 Patient has chronic kidney disease 01/21/2025 Weekly blood pressure task 01/26/2025 Weekly blood pressure task 01/26/2025 Patient has chronic kidney disease 01/26/2025 Patient has chronic kidney disease 01/26/2025 Weekly blood pressure task 01/27/2025 Weekly blood pressure task 01/27/2025 Patient has chronic kidney disease 01/27/2025 Patient has chronic kidney disease 01/27/[address] [place] [id number] [employer] MED[employer]ARE REPLACEMENT DENTAL - [facility]SN FULL (MEDICAID) DENTAL - [employer] DENTAL PPO Care Teams Assembly Room Supervisor Relationship Specialty Start Date End Date Shaista Slade ANP [address] [place] [address] PCP - General Family Medicine 07/20/20
--- OUTSIDE RECORDS SUMMARY | 2025-01-28 11:33 | XMS_ITS | Encounter Summary ---
Author Organization [employer] Address [address] [facility] 7[address] [place] [address] Care Team Providers Care Principal Quality Engineer Name Role Phone Haley Monique Primary Care Provider [phone] Encounter Details Date Type Department Care Team (Latest Contact Info) Description 05/29/2018 Abstract [facility] Dental, Provider, DDS Social History Tobacco Use Types Packs/Day Years Used Date Smoking Tobacco: Never Assessed Comments Unknown Sex and Gender Information Value Date Recorded Sex Assigned at Female 12/11/2021 10:21 AM EDT Legal Sex Female 10:21 AM EDT Gender Identity Female 01/30/2024 8:43 AM EST Sexual Orientation Straight 12/11/2021 10 :21 AM EDT documented as of this encounter Plan of Treatment Upcoming Encounters Date Type Department Care Team (Late st Contact Info) Description 02/25/2025 11:00 AM EST Office Visit [facility] MEDICINE [address] [place] [address] Haley Monique ANP [address] [place] [address] documented as of this encounter Visit Diagnoses Not on filedocumented in this encounter Care Teams Principal Quality Engineer Relationship Specialty Start Date End Date Haley Monique ANP [address] [place] [address] PCP - General Family Medicine 07/20/20 documented as of this encounter
--- OUTSIDE RECORDS SUMMARY | 2025-01-28 11:33 | XMS_ITS | Encounter Summary ---
Author Organization [employer] Address [address] [facility] 7t [place] [address] Care Team Providers Care Photo Manager Name Role Phone Haley Monique Primary Care Provider [phone] Encounter Details Date Type Department Care Team (Latest Contact Info) Description 08/30/2020 Abstract [facility] Dental, Provider, DDS Social History Tobacco [...] Description 02/25/2025 11:00 AM EST Office Visit [facility] MEDICINE [address] [place] [address] Haley Monique ANP [address] [place] [address] documented as of this encounter Visit Diagnoses Not on filedocumented in this encounter Care Teams Photo Manager Relationship Specialty Start Date End Date Haley Monique ANP [address] [place] [address] PCP - General Family Medicine 07/20/20 documented as of this encounter
--- OUTSIDE RECORDS SUMMARY | 2025-01-28 11:33 | XMS_ITS | Encounter Summary ---
Author Organization [employer] Address [address] [place] [address] Care Team Providers Care Hand Ii Thermal Cutter Name Role Phone Haley Monique Primary Care Provider [phone] Reason for Visit * Reason Onset Date Comments Referral 04/26/2023 Encounter Details Date Type Department Care Team ([facility] Contact Info) Description 04/26/2023 Telephone [facility] [address] [place], [place] [phone] Haley Monique ANP [address] [place] [address] Referral Social History Tobacco Use Types Packs/Day Years Used Date Smoking Tobacco: Never Smokeless Tobacco: Never Housing Stability Answer Date Recorded What is your housing situation today? I have sunil villeda 11/29/[address] you li ve. Do you have problems with any of the following? None of the above 11/29/2022 Food Insecurity Answer Date Recorded Within the past 12 months, y ou worried that your food would run out before you got money to buy more: Never True 11/29/2022 Within the past 12 months,th e food you bought just didn't last and you didn't have enough money to get more: Never True Transportation Answer Date Recorded In the past 12 months, has l ack of transportation kept you from medical appts, meetings, work or from getting things needed for daily living? No 11/29/2022 Utilities Answer Date Recorded In the past 12 months, has t he electric, gas, oil or water company threatened to shut off services in your home? No 11/29/2022 Depression Answer Date Recorded Patient Health Questionnaire-2 Score 0 07/20/2022 Comments Unknown Sex and Gender Information Value Date Recorded Sex Assigned at Female 12/11/2021 10:21 AM EDT Legal Sex Female 10:21 AM EDT Gender Identity Female 01/30/2024 8:43 AM EST Sexual Orientation Straight 12/11/2021 10 :21 AM EDT documented as of this encounter Miscellaneous Notes * Telephone Encounter - Celi Marcio - 04/26/2023 10:51 AM EDT Tc from pt requesting an referral for [facility] vision center. documented in this encounter Plan of Treatment Upcoming Encounters Date Type Department Care Team (Late st Contact Info) Description 02/25/2025 11:00 AM EST Office Visit [facility] [address] [place] [phone] Haley Monique ANP [address] [place] [address] documented as of this encounter Visit Diagnoses Diagnosis Type 2 diabetes mellitus with hyperlipidemia (HCC) Hypertension associated with diabetes (HCC) Unspecified essential hypertension Routine eye exam Examination of eyes and vision documented in this encounter Care Teams Hand Ii Thermal Cutter Relationship Specialty Start Date End Date Haley Monique ANP [address] [place] [id number] PCP - General Family Medicine 07/20/20 documented as of this encounter
--- OUTSIDE RECORDS SUMMARY | 2025-01-28 11:33 | XMS_ITS | Encounter Summary ---
Author Organization [employer] Address [address] [place] [address] Care Team Providers Care Life Agent Name Role Phone Haley Monique Primary Care Provider Encounter Details Date Type Department Care Team ([facility] Contact Info) Description 07/12/2023 Orders Only [facility] [address] [place] [address] Haley Monique ANP [address] [place] [address] Social History Tobacco Use Types Packs/Day Years [...] Visit [facility] [address] [place] [address] Haley Monique ANP [address] [place] [address] documented as of this encounter Visit Diagnoses Not on filedocumented in this encounter Care Teams Life Agent Relationship Specialty Start Date End Date Haley Monique ANP [address] [place] [id number] PCP - General Family Medicine 07/20/20 documented as of this encounter
--- OUTSIDE RECORDS SUMMARY | 2025-01-28 11:33 | XMS_ITS | Encounter Summary ---
Author Organization [employer] Address [address] [place] [address] Care Team Providers Care Mine Development Engineer Name Role Phone Haley Monique Primary Care Provider Encounter Details Date Type Department Care Team (Latest Contact Info) Description 01/26/2025 Results Follow-Up [facility] [address] [place] [address] Haley Monique ANP [address] [place] [address] BI Mammogram Screening Tomosynthesis Bilateral Social History Tobacco Use Types Packs/Day Years Used Date Smoking Tobacco: Never Smokeless Tobacco: Never Alcohol Use Standard Drinks/Week Comments Defer 0 [...] as of this encounter Miscellaneous Notes * Result Encounter Note - ERIBERTO Campoverde - 01/26/2025 4:16 PM EST Please follow [facility] mammo documented in this encounter Plan of Treatment Upcoming Encounters Date Type Department Care Team (Late st Contact Info) Description 02/25/2025 11:00 AM EST Office Visit [facility] [address] [place] [address] Haley Monique ANP [address] [place] [address] documented as of this encounter Goals Goal Patient Goal Type Associated Problems [...] Care Plan Weekly blood pressure task No Haley Monique ANP Weekly blood pressure task Care Plan Weekly blood pressure task No Haley Monique ANP Patient has chronic kidney disease Care Plan Patient has chronic kidney disease No Haley Monique ANP Patient has chronic kidney disease Care Plan Patient has chronic kidney disease No Haley Monique ANP documented as of this encounter Visit Diagnoses Not on filedocumented in this encounter Additional Health Concerns Active Problems Noted Date [...] 01/26/2025 Patient has chronic kidney disease 01/26/2025 Assessment Noted Time PHQ-9 Depression Total Score: 0 09/30/19 25 9:23 AM EDT documented as of this encounter Care Teams Mine Development Engineer Relationship Specialty Start Date End Date Haley Monique ANP [address] [place] [id number] PCP - General Family Medicine 07/20/20 documented as of this encounter
--- OUTSIDE RECORDS SUMMARY | 2025-01-28 11:33 | XMS_ITS | Encounter Summary ---
Author Organization [employer] [facility] Address [address] [facility] 7[address] [place] [address] Care Team Providers Care Access Service Representative Name Role Phone Haley Monique Primary Care Provider [phone] Encounter Details Date Type Department Care Team (Late st Contact Info) Description 01/29/2022 Orders Only [facility] [address] [place] [address] Mariaelena Chew LPN Social History Tobacco Use Types Packs/Day Years [...] Description 02/25/2025 11:00 AM EST Office Visit [facility] [address] [place] [address] Haley Monique ANP [address] [place] [address] documented as of this encounter Visit Diagnoses Not on filedocumented in this encounter Care Teams Access Service Representative Relationship Specialty Start Date End Date Haley Monique ANP [address] [place] [address] PCP - General Family Medicine 07/20/20 documented as of this encounter
--- OUTSIDE RECORDS SUMMARY | 2025-01-28 11:33 | XMS_ITS | Encounter Summary ---
Author Organization [employer] Address [address] [place] [address] Care Team Providers Care Culinary Internship Name Role Phone Haley Monique ERIBERTO Primary Care Provider [phone] Reason for Visit * Reason Onset Date Comments relocating dental care 12/29/2024 Encounter Details Date Type Department Care Team ([facility] st Contact Info) Description 12/29/2024 Telephone [facility] [address] [place], [place] [phone] Yoana Turner [address] [place] [address] relocating dental care Social History Tobacco Use Types Packs/Day Years [...] encounter Miscellaneous Notes * Telephone Encounter - Helen Smith - 12/29/2024 11:12 AM EST Patient choosing to relocate dental care. Multiple rescheduled appts. Patient did not want to continue to wait until February and decided to go elsewhere for treatment. Wishes everyone a nice holiday. documented in this encounter Plan of Treatment Upcoming Encounters Date Type Department Care Team (Late st Contact Info) Description 02/25/2025 11:00 AM EST Office Visit [facility] [address] [place] [address] Haley Monique ANP [address] [place] [address] documented as of this encounter Goals Goal Patient Goal Type Associated Problems Recent Progress Patient-Stated? Author Help patients manage their type 2 diabetes Care Plan Help patients manage their type 2 diabetes No Jason Babina Weekly blood pressure task Care Plan Weekly blood pressure task No Fan Babinsha Help patients manage their type 2 diabetes Care Plan Help patients manage their type 2 diabetes No Babin María Patient has chronic kidney disease Care Plan Patient has chronic kidney disease No Talya María Weekly blood pressure task Care Plan Weekly blood pressure task No Talya María Patient has chronic kidney disease Care Plan Patient has chronic kidney disease No María Babin Weekly blood pressure task Care Plan Weekly blood pressure task No Helen Smith Weekly blood pressure task Care Plan Weekly blood pressure task No Smith, Helen Patient has chronic kidney disease Care Plan Patient has chronic kidney disease No Smith, Helen Patient has chronic kidney disease Care Plan Patient has chronic kidney disease No Fadumo Smiths documented as of this encounter Visit Diagnoses [...] 12/29/2024 Patient has chronic kidney disease 12/29/2024 Assessment Noted Time PHQ-9 Depression Total Score: 0 09/30/19 25 9:23 AM EDT documented as of this encounter Care Teams Culinary Internship Relationship Specialty Start Date End Date Haley Monique ANP [address] [place] [phone] PCP - General Family Medicine 07/20/20 documented as of this encounter
--- OUTSIDE RECORDS SUMMARY | 2025-01-28 11:33 | XMS_ITS | Encounter Summary ---
Author Organization [employer] Address [address] [place] [address] Care Team Providers Care Financial Accounting Manager Name Role Phone Shaista Slade Primary Care Provider [phone] Encounter Details Date Type Department Care Team ([facility] Contact Info) Description 01/22/2025 Orders Only [facility] [address] [place] [address] Shaista Slade ANP [address] [place] [address] Social History Tobacco Use Types Packs/Day Years [...] Description 02/25/2025 11:00 AM EST Office Visit [facility] [address] [place] [address] Shaista Slade, ANP [address] [place] [address] documented as of this encounter Goals Goal [...] Care Plan Weekly blood pressure task No Ryland Mana, OD Weekly blood pressure task Care Plan Weekly blood pressure task No Ryland, Mana, OD Patient has chronic kidney disease Care Plan Patient has chronic kidney disease No Ryland, Mana, OD Patient has chronic kidney disease Care Plan Patient has chronic kidney disease No Ryland, Mana, OD documented as of this encounter Procedures Procedure Name Priority Date/Time Associated Diagnosis Comments BI MAMMOGRAM SCREENING TOMOSYNTHESIS BILATERAL Routine 01/22/2025 11:20 AM EST documented in this encounter Results * BI Mammogram Screening Tomosynthesis Bilateral (01/22/2025 11:20 AM EST) Anatomical Region Laterality Modality Breast Bilateral Mammography 01/22/2025 11:2 0 AM EST Narrative 01/26/2025 3:30 PM EST [facility] [address] [place] [address] Mammography Report Signed Patient: Priya Garcia MR#: [id number] 5 : 1945 Acct:[id number] Age/Sex: 79 / F ADM Date: 01/22/25 Loc: HO.MAMMO Attending Dr: Shaista Slade NP Ordering Physician: SHAISTA SLADE NP Results: 0Incomplete - Need Additional Imaging Evaluation Date of Service: 01/22/25 Follow Up: Additional Imagi ng Procedure(s): MM tomosynthesis screening BI Accession Number(s): [id number] cc: SHAISTA SLADE NP Reason For Exam: [...] 01/26/25 1527 DD/ 1120 TD/TT: 01/22/25 1128 Functional Analyst: Procedure Note Donotuseinterpreter, Image - 01/26/2025 [facility] [address] [place] [address] Mammography Report Signed Patient: Priya GarciaMR#: [id number] 5 : 4Acct:[id number] Age/Sex: 79 / FADM Date: 01/22/25 Loc: HO.MAMMO Attending Dr: Shaista Slade NP Ordering Physician: SHAISTA SLADE NPResults: 0Incomplete - Need Additional Imaging Evaluation Date of Service: 01/22/25Follow Up: Additional Imagi ng Procedure(s): MM tomosynthesis screening BI Accession Number(s): [id number] cc: SHAISTA SLADE NP Reason For Exam: [...] their next mammogram. Electronically signed by: Gina Waletr DO 01/26/2025 03:27 PM EST Dictated By: Gina Walter DO Signed By: <Electronically signed by Gina Walter DO in OV> 01/26/25 1527 DD/ 1120 TD/TT: 01/22/25 1128 Functional Analyst: us Shaista WEI IMG BI PROCEDURES Edited Result - Final documented in this encounter Visit Diagnoses Not on filedocumented [...] 01/21/2025 Patient has chronic kidney disease 01/21/2025 Assessment Noted Time PHQ-9 Depression Total Score: 0 09/30/19 25 9:23 AM EDT documented as of this encounter Care Teams Financial Accounting Manager Relationship Specialty Start Date End Date Shaista Slade ANP [address] [place] [phone] PCP - General Family Medicine 07/20/20 documented as of this encounter
[2025-01-28 12:16] LABS: Cholesterol 125 mg/dL (<200); HDL Cholesterol 43 mg/dL (>40); Triglycerides 124 mg/dL (<150)
== END 2025-01-28 09:45 | disposition home or self-care (01) ==
LOC: HO.HHCL 09:44
PROVIDERS: PCP Nurse Practitioner Primary Care; Visit Provider Nurse Practitioner Primary Care
DX: E78.2 Mixed hyperlipidemia (principal)
CPT/HCPCS: 36415; 80061